=== PATIENT | male | born 1955 | race Caucasian/White ===

== ENCOUNTER 2017-12-03 15:00 | Emergency (ER) | payer BC, OTHER ==
--- NOTE | 2017-12-03 15:04 | ED Physician Documentation ---
Fall - HISTORIAN Historian: patient - HPI Stated Complaint: right knee pain after fall Chief Complaint: Lower Extremity Injury Onset: just prior to arrival Where: home Context: other (fell out of a truck bed onto pavement ) r: moderate Associated Symptoms:: no loss of consciousness Location of Pain/Injury: lower extremity (knee ) Injury to Right Extremity: knee Injury to Left Extremity: none Further Comments: yes (He states he is on a blood thinner. Pain is only present when he is trying to stand or move the knee. He has been on the blood thinner for Factor V and this dose of coumadin for "years" he is not sure when last PT/ INR was checked. He denies any other injury. He might have hit his left knee a little but no pain there.) - ROS CONST: no problems NEURO: denies: dizziness MS/SKIN/LYMPH: other (right knee is swollen. Obvious fluid around knee ). denies: weakness, numbness, back pain CVS/RESP: none GI/: nausea (when he has pain he does get nauseated ). denies: vomiting - PAST HX Past History: other (Factor V (treated with coumadin) ) Immunizations: UTD Allergies/Adverse Reactions: Allergies Allergy/AdvReac Type Severity Reaction Status Date / Time No Known Allergies Allergy Verified 12/03/17 15:39 Home Medications: Ambulatory Orders Medication Instructions Recorded Venlafaxine HCl [Effexor Xr] 150 mg PO DAILY 12/03/17 Warfarin Sodium [Warfarin Sodium] 5 mg PO HS 12/03/17 - SOCIAL HX Smoking History: non-smoker Alcohol Use: none Drug Use: none - FAMILY HX Family History: none, no significant history - VITAL SIGNS Vital Signs: Vital Signs Temp Pulse Resp BP Pulse Ox 124/94 02/16/13 15:00 - REVIEWED ASSESSMENTS Nursing Assessment Reviewed: Yes Vitals Reviewed: Yes Progress - Progress Progress: 1554: Pain is improved. Patella is fractured. Pt would like transfer to be through [facility] 1630: pain is "fine" he states. No other complaints. ED Results Lab/Radiology - Radiology Radiology Impressions: Examination: Plain film right knee History: INJURY AFTER FALL TODAY FROM TRUCK (Hx) Findings: 2 views of the right knee demonstrates a lucency involving the mid patella. Margins of the femur and tibia/fibula appear to be intact. No dislocation. Joint effusion. Impression: Patellar fracture. Joint effusion. Electronically signed on Dec 03, 2017 3:48:24 PM CDT by: Reza Chaves Physical Exam - Physical Exam General Appearance: no acute distress, alert Head: non-tender, no obvious injury Eye: LEMUEL Resp/CVS: chest non-tender, breath sounds nml, no resp. distress, heart sounds nml Abdomen: soft Neuro: oriented x3, CN's nml as tested, sensation nml, motor nml, mood/affect nml Skin: color nml, no rash, other (redness and obvious fluid movement on lateral side of right knee. ROM is decreased due to swelling and pain. Pulses + Sensation + cap refill + ) Back: normal inspection Extremities: no pedal edema, nml color/temp Joint: painful (right knee to bear weight ) - [place] Coma Score Eyes Open: Spontaneous Speech: Oriented Motor: Obeys Commands Discharge Clincal Impression: Patella fracture Qualifiers: Encounter type: initial encounter Fracture type: closed Fracture morphology: unspecified fracture morphology Fracture alignment: nondisplaced Laterality: right Qualified Code(s): S82.001A - Unspecified fracture of right patella, initial encounter for closed fracture Referrals: Nadira Marino FNP [Primary Care Provider] - 2 Days Comments: [facility] ER transfer Dr Wong is accepting in ER DG [id number] Condition: Serious Disposition: 02 XFER [facility]OSP Decision to Admit: NO Date of Decison to Admit: 12/03/17 Decision Time: 15:54
[2017-12-03 15:22] LABS: BASOPHILS % 0.6 (0.0-1.5); EOSINOPHILS % 1.3 % (0.0-6.8); MEAN CORPUSCULAR HEMOGLOBIN 30.3 pg (28.0-34.0); MEAN CORPUSCULAR VOLUME 87.7 fl (80.0-100.0); MONOCYTES % 3.6 % (0.0-11.0)
[2017-12-03] MEDS: ONDANSETRON HCL/PF 4 MG/ 2ML VIAL IM ONE (15:36)
[2017-12-03] MEDS: fentaNYL CITRATE/PF 100 MCG/ 2ML AMP IM ONE (15:36)
[2017-12-03 15:38] LABS: eGFR (African) > 60; eGFR (Non-African) > 60
--- NOTE | 2017-12-03 15:52 | Diagnostic Imaging Report ---
SUZANNA FLORES [facility] [address] [facility] [address] [address] Report Submission Date: Dec 03, 2017 3:48:24 PM CDT Patient Study Name: JOLENE CLEARY Date: Dec 03, 2017 3:25:56 PM CDT Modality Type: DX Gender: M Description: LOWER EXTREMITY : 53 Institution: [facility] Physician: SUZANNA FLORES Examination: Plain film right knee History: INJURY AFTER FALL TODAY FROM TRUCK (Hx) Findings: 2 views of the right knee demonstrates a lucency involving the mid patella. Margins of the femur and tibia/fibula appear to be intact. No dislocation. Joint effusion. Impression: Patellar fracture. Joint effusion. Electronically signed on Dec 03, 2017 3:48:24 PM CDT by: Reza ALMARAZ
[2017-12-03 16:44] VITALS: BP 146/91
== END 2017-12-03 16:30 | disposition short-term general hospital (02) ==
LOC: ED 15:00
DX: S82.001A Unspecified fracture of right patella, initial encounter for closed fracture (principal); W19.XXXA Unspecified fall, initial encounter; Y92.9 Unspecified place or not applicable
CPT/HCPCS: 73562; 80053; 85025; 85610; J2405; J3010; 96372; S1016